=== PATIENT | female | born 1950 | race Caucasian/White ===

== ENCOUNTER 2019-01-16 03:09 | Emergency (ER) | payer MEDICARE, BC ==
[~2019-01-16] VITALS: Ht 167.6 cm; Wt 94.3 kg
[2019-01-16] MEDS ORDERED: VENL75CA PO (03:25)
[2019-01-16] MEDS ORDERED: SIMV10TA3 PO (03:25)
[2019-01-16 03:36] LABS: BILIRUBIN,URINE NEGATIVE (NEGATIVE); CLARITY,URINE SLIGHTLY CLOUDY; COLOR,URINE RED; GLUCOSE, URINE (UA) NEGATIVE (NEGATIVE); KETONES,URINE NEGATIVE (NEGATIVE); LEUKOCYTE ESTERASE ,URINE 1+ (NEGATIVE); NITRITE,URINE NEGATIVE (NEGATIVE); PH,URINE 7 (5-9); PROTEIN,URINE 4+ (NEGATIVE); UROBILINOGEN,URINE NORMAL (NORMAL)
[2019-01-16] MEDS ORDERED: PHENAZOPYRIDINE 100 MG (PYRIDIUM) TABLET PO ONE (03:45)
[2019-01-16 03:47] LABS: BACTERIA,URINE TRACE /HPF; RBC,URINE TNTC /HPF; SQUAMOUS EPITHELIAL CELL,UR RARE /HPF; WBC,URINE RARE /HPF
[2019-01-16 04:20] LABS: BASOPHILS % (AUTO) 0 % (0-10); EOSINOPHILS # (AUTO) 0.2 10^3/uL (0.0-0.3); EOSINOPHILS % (AUTO) 1 % (0-10); HEMATOCRIT 42 % (35-52); HEMOGLOBIN 13.6 G/DL (11.5-16.0); LYMPHOCYTES # (AUTO) 1.5 X 10^3 (1.0-4.0); LYMPHOCYTES % (AUTO) 11 % (12-44); MEAN CORPUSCULAR HEMOGLOBIN 29 PG (25-34); MEAN CORPUSCULAR HGB CONC 32 G/DL (32-36); MEAN CORPUSCULAR VOLUME 89 FL (80-99); MEAN PLATELET VOLUME 12.4 FL (7.4-10.4); MONOCYTES # (AUTO) 0.9 X 10^3 (0.0-1.0); MONOCYTES % (AUTO) 7 % (0-12); NEUTROPHILS # (AUTO) 10.7 X 10^3 (1.8-7.8); NEUTROPHILS % (AUTO) 81 % (42-75); PLATELET COUNT 192 10^3/uL (130-400); RED CELL DISTRIBUTION WIDTH 16.1 % (10.0-14.5); WHITE BLOOD COUNT 13.2 10^3/uL (4.3-11.0)
--- NOTE | 2019-01-16 04:24 | ED GU-Female ---
General Chief Complaint: - Urinary Stated Complaint: BLADDER INFECTION Nursing Triage Note: HEMATURIA, URINARY FREQUENCY Nursing Sepsis Screen: No Definite Risk Source: patient Exam Limitations: no limitations History of Present Illness Date Seen by Provider: Jan 16, 2019 Time Seen by Provider: 03:27 Initial Comments This 68-year-old woman presents to the emergency room with complaints of hematuria and pelvic discomfort with urination since around 02:30. She had a little discomfort last night but no hematuria. She denies fever. She traveled 11 hours today from [place] to visit family in the [facility]. She denies any prior episodes of hematuria or kidney stones. She only notices blood when she urinates. Allergies and Home Medications Allergies Coded Allergies: Penicillins (Verified Allergy, Unknown, 01/16/19) Home Medications Ciprofloxacin HCl 500 Mg Tablet, 500 MG PO BID Prescribed by: BYRON HAILE on 01/16/19627 Phenazopyridine HCl 200 Mg Tablet, 1 TAB PO TID PRN for PAIN-MODERATE TO SEVERE Prescribed by: BYRON HAILE on 01/16/19627 Patient Home Medication List Home Medication List Reviewed: Yes Review of Systems Review of Systems Constitutional: no symptoms reported EENTM: no symptoms reported Respiratory: no symptoms reported Cardiovascular: no symptoms reported Gastrointestinal: no symptoms reported Genitourinary: see HPI : No Musculoskeletal: no symptoms reported Skin: no symptoms reported Psychiatric/Neurological: No Symptoms Reported Endocrine: No Symptoms Reported Hematologic/Lymphatic: See HPI Past Bouvwcy-Tnzsue-Ulrwgy Hx Patient Social History Alcohol Use: Rarely Uses Recreational Drug Use: No Smoking Status: Never a Smoker 2nd Hand Smoke Exposure: No Recent Foreign Travel: No Contact w/Someone Who Travel: No Recent Infectious Disease Expo: No Recent Hopitalizations: No Immunizations Up To Date Tetanus Booster (TDap): Unknown Seasonal Allergies Seasonal Allergies: No Past Medical History Surgeries: No Respiratory: Yes Sleep Apnea Cardiac: Yes High Cholesterol Neurological: No Genitourinary: No Gastrointestinal: No Musculoskeletal: No Endocrine: Yes (obesity) HEENT: No Cancer: No Psychosocial: Yes Anxiety, Depression Integumentary: No Blood Disorders: No Physical Exam Vital Signs Vital Signs - First Documented 01/16/19 03:19 Temp 97.1 Pulse 77 Resp 16 B/P (MAP) 172/99 (123) Pulse Ox 94 O2 Delivery Room Air Capillary Refill : Less Than 3 Seconds Height, Weight, BMI Height: 5'6.00" Weight: 208lbs. oz. 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, no motor/sensory deficits, alert, normal mood/affect, oriented x 3 Skin: normal color, warm/dry Progress/Results/Core Measures Suspected Sepsis Recent Fever Within 48 Hours: No Infection Criteria Present: None New/Unexplained Altered Menta: No Sepsis Screen: No Definite Risk SIRS Temperature:97.1 Pulse: 77 Respiratory Rate: 16 Laboratory Tests 01/16/19 04:15: White Blood Count 13.2H Blood Pressure 172 /99 Mean: 123 Laboratory Tests 01/16/19 04:15: Creatinine 0.89, INR Comment 0.9, Platelet Count 192, Total Bilirubin 0.2 Results/Orders Lab Results My Orders Medications Given in ED Vital Signs/I&O Capillary Refill : Less Than 3 Seconds Blood Pressure Mean: 123 Progress Note #1: Time: 04:27 Progress Note Patient received Pyridium for pain control. She took ibuprofen at home. UA revealed a significant amount of blood but only trace WBC and trace bacteria. This would suggest her bleeding is not from urinary tract infection. I have discussed further workup including blood work and possibly CT scan with the patient. She is agreeable to that course of action. Progress Note #2: Progress Note CT imaging studies were negative. Patient's gross hematuria needs to be worked up further. I've suggested the patient follow-up with her primary care provider and seek referral to a urologist for cystoscopy. Patient is at risk for bladder cancer with smoking history. Diagnostic Imaging Diagonstic Imaging: CT Plain Films/CT/US/NM/MRI: abdomen, pelvis Comments Noncontrast CT of the abdomen and pelvis was viewed by me and [facility] report reviewed. No acute abnormalities were appreciated. Diagonstic Imaging: CT Plain Films/CT/US/NM/MRI: abdomen, pelvis Comments CT abdomen and pelvis with contrast was viewed by me and [facility] report reviewed. No acute abnormalities were appreciated. Departure Impression Primary Impression: Gross hematuria Additional Impression: Suprapubic pain Disposition: 01 HOME, SELF-CARE Condition: Improved Departure-Patient Inst. Decision time for Depature: 06:15 Referrals: NO,LOCAL PHYSICIAN (PCP) Primary Care Physician Patient Instructions: Urinary Tract Infection, Adult (DC), Blood in the Urine (Hematuria), Adult (DC) Add. Discharge Instructions: Drink plenty of clear liquids. Complete your antibiotic as prescribed. Return to the hospital during business hours this week to obtain a CD of your CT images. Also request a copy of your urine culture results at that time. Follow-up with your primary care provider soon as possible. At a minimum, you need a repeat urinalysis performed after you complete antibiotics. Referral to a urologist for cystoscopy may also be pursued by your primary care provider. Further evaluation of the blood in your urine may need to be performed with cystoscopy or other procedures. Return to the emergency room if you're having worsening symptoms or develop new symptoms such as fever. All discharge instructions reviewed with patient and/or family. Voiced understanding. Scripts Phenazopyridine HCl (Pyridium) 200 Mg Tablet 1 TAB PO TID PRN for PAIN-MODERATE TO SEVERE, #10 TAB Prov: BYRON JENKINS MD 01/16/19 Ciprofloxacin HCl (Ciprofloxacin HCl) 500 Mg Tablet 500 MG PO BID, #14 TAB Prov: BYRON JENKINS MD 01/16/19 BYRON JENKINS MD Jan 16, 2019 04:24
[2019-01-16 04:43] LABS: INR 0.9 (0.8-1.4); PROTHROMBIN TIME PATIENT 12.4 SEC (12.2-14.7)
[2019-01-16 04:51] LABS: ALANINE AMINOTRANSFERASE 23 U/L (0-55); ALBUMIN 4.2 GM/DL (3.2-4.5); ALKALINE PHOSPHATASE 51 U/L (40-136); BILIRUBIN,TOTAL 0.2 MG/DL (0.1-1.0); BUN/CREATININE RATIO 24; CALCIUM 10.3 MG/DL (8.5-10.1); CARBON DIOXIDE 24 MMOL/L (21-32); CHLORIDE 108 MMOL/L (98-107); CREATININE SERUM 0.89 MG/DL (0.60-1.30); GFR ESTIMATED > 60; GLUCOSE 114 MG/DL (70-105); POTASSIUM 3.7 MMOL/L (3.6-5.0); SODIUM 142 MMOL/L (135-145)
[2019-01-16] MEDS ORDERED: IOHEXOL 350 MG/ML 100 ML (OMNIPAQUE 350) VIAL IV ONE (05:45)
[2019-01-16] MEDS ORDERED: NS 100 ML (IVPB) BAG IV ONE (05:45)
[2019-01-16] MEDS ORDERED: HOLD METFORMIN - RECEIVED CONTRAST 20 ML VIAL IV SCH (05:45)
[2019-01-16] MEDS ORDERED: CIPR500T4 PO (06:28)
[2019-01-16] MEDS ORDERED: PHEN-640 PO (06:28)
[2019-01-16 06:30] VITALS: BP 170/92
[2019-01-16] MEDS ORDERED: CIPROFLOXACIN 500 MG (CIPRO) TABLET PO ONE (06:30)
--- NOTE | 2019-01-16 06:44 | Diagnostic Imaging Report ---
PROCEDURE: CT urinary tract, rule out kidney stone. TECHNIQUE: Multiple contiguous axial images were obtained through the abdomen and pelvis without the use of intravenous contrast. Auto Exposure Controls were utilized during the CT exam to meet ALARA standards for radiation dose reduction. INDICATION: Fever, chills and urinary frequency There are no prior studies for comparison. There is no evidence for a nephrolithiasis or urolithiasis and the kidneys do not appear to be obstructed. The urinary bladder is only partially filled and consequently difficult to assess. There is no obvious bladder abnormality evident. There is no pelvic mass or free fluid collection noted. The uterus is grossly unremarkable. The appendix was not particularly well-visualized but there are no indirect signs of acute appendicitis. There is a fair amount of fecal material throughout the colon. The liver, spleen, pancreas, adrenals, gallbladder, aorta and inferior vena cava show no evidence of an acute abnormality. The stomach is not fully distended and consequently difficult to assess. There may be a very small hiatal hernia. The lung bases are clear. Bone windows show no sign of a fracture or a destructive lesion. There is mild anterior translation of L4 we respect to L5 with narrowing of the disc space at this level. The axial images also suggest that there is trefoil stenosis at this level with neural foraminal narrowing. IMPRESSION: 1. There is no evidence for nephrolithiasis or urolithiasis and the kidneys do not appear to be obstructed. 2. There is no acute abnormality of the abdomen or pelvis noted otherwise. 3. 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 Dictated by: Dictated on workstation # [id number]
--- NOTE | 2019-01-16 06:47 | Diagnostic Imaging Report ---
PROCEDURE: CT abdomen and pelvis with contrast. TECHNIQUE: Multiple contiguous axial images were obtained through the abdomen and pelvis after administration of intravenous contrast. Auto Exposure Controls were utilized during the CT exam to meet ALARA standards for radiation dose reduction. INDICATION: Hematuria The CT abdomen/pelvis exam performed without intravenous contrast prior to this study failed to show any sign of nephrolithiasis or urolithiasis. On this exam both kidneys do show excretion of the contrast. There is no sign of obstruction of either collecting system. The renal parenchyma are generally unremarkable. There is no defect within the renal parenchyma to suggest acute pyelonephritis. The urinary bladder is fairly well-distended by urine. There is no obvious defect within the bladder. The overall appearance of the abdomen and pelvis has not changed significantly otherwise. There is no acute abnormality noted. IMPRESSION: 1. There is no evidence for an acute abnormality of the abdomen or pelvis. 2. Both kidneys do show excretion of the contrast and there is no sign of pyelonephritis. Dictated by: Dictated on workstation # [id number]
== END 2019-01-16 06:32 | disposition home or self-care (01) ==
LOC: ER 03:12
DX: R31.0 Gross hematuria (principal); R10.30 Lower abdominal pain, unspecified; F41.9 Anxiety disorder, unspecified; F32.9 Major depressive disorder, single episode, unspecified; E66.9 Obesity, unspecified; E78.00 Pure hypercholesterolemia, unspecified; G47.30 Sleep apnea, unspecified; Z88.0 Allergy status to penicillin
CPT/HCPCS: 36415; 74176; 74177; 80053; 81000; 85025; 85610; 85730